=== PATIENT | female | born 1970 | race Caucasian/White ===

== ENCOUNTER → 2016-12-25 | Outpatient (CLI) | payer BC ==
[2016-12-25 09:46] LABS: BASO % 0.7 %; BASO ABS # 0.05 K/uL (0-0.2); COMPLETE YES; EOS % 3.8 %; IG% 0.3 %; LYMPH % 35.7 %; LYMPH ABS # 2.46 K/uL (1.2-3.4); MEAN CELL VOLUME 87.6 fL (80-100); MEAN CORPUSCULAR HEMOGLOBIN 29.4 pg (25-34); MEAN CORPUSCULAR HGB CONC 33.6 g/dl (32-36); MEAN PLATELET VOLUME 9.4 fL (7.4-10.4); MONO % 5.2 %; NEUT % 54.3 %; PLATELET COUNT 263 K/uL (130-400); RED BLOOD COUNT 4.45 M/uL (4.2-5.4)
[2016-12-25 10:53] LABS: ALT/SGPT 23 U/L (12-78); BLOOD UREA NITROGEN 18 mg/dl (7-18); CALCIUM 8.9 mg/dl (8.5-10.1); CARBON DIOXIDE 23 mmol/L (21-32); CHLORIDE 106 mmol/L (98-107); CHOLESTEROL 184 mg/dl (0-200); CREATININE 0.77 mg/dl (0.60-1.20); GLUCOSE 88 mg/dl (70-99); POTASSIUM 4.1 mmol/L (3.5-5.1); SODIUM 140 mmol/L (136-145)
[2016-12-25 10:56] LABS: ALB/GLOB RATIO 1.2 (0.9-2); ALKALINE PHOSPHATASE 59 U/L (45-117); AST/SGOT 14 U/L (15-37); CHOLESTEROL/HDL RATIO 3.3; HDL CHOLESTEROL 56 mg/dl; TRIGLYCERIDES 128 mg/dl (0-150); VERY LOW DENSITY LIPOPROT CALC 26 mg/dl
[2016-12-27 02:13] LABS: MUMPS IgG VALUE >5.00
== END | disposition home or self-care (01) ==
LOC: C.LAB 08:22
PROVIDERS: ATTEND Nurse Practitioner Family
DX: Z13.1 Encounter for screening for diabetes mellitus (principal); Z13.220 Encounter for screening for lipoid disorders; Z78.9 Other specified health status

== ENCOUNTER → 2017-10-31 | Outpatient (CLI) | payer BC ==
--- NOTE | 2017-10-31 10:47 | DIAGNOSTIC IMAGING REPORT ---
L FOOT MIN 3 VIEWS ROUTINE HISTORY: 46 years-old Female M79.672 Left foot [id number] acute left foot pain, most pronounced within the heel COMPARISON: None available TECHNIQUE: 3 views of the left foot FINDINGS: Mild first MTP joint degenerative changes. No acute fracture or dislocation. No stress fracture. Lateral plate and screw fusion hardware of the distal fibula. Post surgical changes of the medial malleolus are also noted. There is no significant spurring of the calcaneus. Mild spurring of the dorsal midfoot. No opaque foreign body. Soft tissues are unremarkable. IMPRESSION: Mild degenerative changes without acute fracture or dislocation. The above report was generated using voice recognition software. It may contain grammatical, syntax or spelling errors. Electronically signed by: Kendell Pierre M.D. 10/31/2017 10:46 AM Dictated Date/Time: 10/31/2017 10:17 AM
== END | disposition home or self-care (01) ==
LOC: C.RAD 09:57
PROVIDERS: ATTEND Nurse Practitioner Family
DX: M79.672 Pain in left foot (principal)

== ENCOUNTER → 2017-11-06 | Outpatient (CLI) | payer BC ==
--- NOTE | 2017-11-07 13:36 | MAMMOGRAPHY REPORT ---
BILATERAL DIGITAL SCREENING MAMMOGRAM TOMOSYNTHESIS WITH CAD: 11/06/2017 CLINICAL HISTORY: Routine screening. Patient has no complaints. TECHNIQUE: Breast tomosynthesis in addition to standard 2D mammography was performed. Current study was also evaluated with a Computer Aided Detection (CAD) system. COMPARISON: Comparison is made to exams dated: 09/18/2016 mammogram - [facility], 11/04/2014 mammogram, 10/12/2013 mammogram, 09/30/2012 mammogram, and 07/11/2011 mammogram. BREAST COMPOSITION: The tissue of both breasts is heterogeneously dense, which may obscure small mas ses. FINDINGS: There are faint calcifications within the left upper outer quadrant, for which spot magnif ication views are recommended for further evaluation. Additionally, there is a round circumscribed 5 mm mass seen within the left lateral breast at approximately 3:00, best seen on the tomosynthesis im ages, for which ultrasound is recommended for further evaluation; this may represent a cyst. The remainder of both breasts are stable compared to prior exams, without suspicious masses, calcific ations, or areas of architectural distortion noted. Calcifications seen within the right superior br east middle depth on the MLO view are stable compared to prior exams; calcifications demonstrated lay ering on the prior MLO view from the 2016 exam and are consistent with benign milk of calcium. IMPRESSION: ACR BI-RADS CATEGORY 0: INCOMPLETE EVALUATION: NEED ADDITIONAL IMAGING EVALUATION Left upper outer quadrant calcifications and left breast mass, for which additional imaging evaluatio n is recommended. The patient will be called to schedule an appointment. Approximately 10% of breast cancers are not detected with mammography. A negative mammographic report should not delay biopsy if a clinically suggestive mass is present. Nimisha Mcpherson M.D. /:11/06/2017 16:51:33 Wire Mill Rover: Ann-Marie ROWAN)(Chang), [facility] letter sent: Addl Imaging 0 BI-RADS Code: ACR BI-RADS Category 0: Incomplete Evaluation: Need Additional Imaging Evaluation
== END | disposition home or self-care (01) ==
LOC: C.MAMM 10:04
PROVIDERS: ATTEND Nurse Practitioner Family
DX: Z12.31 Encounter for screening mammogram for malignant neoplasm of breast (principal); R92.1 Mammographic calcification found on diagnostic imaging of breast; N63.20 Unspecified lump in the left breast, unspecified quadrant

== ENCOUNTER → 2017-11-19 | Outpatient (CLI) | payer BC ==
--- NOTE | 2017-11-19 14:12 | MAMMOGRAPHY REPORT ---
UNILATERAL LEFT DIGITAL DIAGNOSTIC MAMMOGRAM AND TARGETED LEFT ULTRASOUND: 11/19/2017 CLINICAL HISTORY: Callback from screening mammogram for left breast calcifications and left breast ma ss. TECHNIQUE: Spot magnification left CC and ML views were obtained. COMPARISON: Comparison is made to exams dated: 11/06/2017 mammogram, 09/18/2016 mammogram - [facility], 11/04/2014 mammogram, 10/12/2013 mammogram, 09/30/2012 mammogram, and 07/11/2011 m ammogram. BREAST COMPOSITION: The tissue of the left breast is heterogeneously dense, which may obscure small masses. FINDINGS: Spot magnification views of the left breast demonstrate 2 similar-appearing loose grouping s of calcifications in the left upper outer quadrant, best seen on the lateral views. The calcificat ions are predominantly amorphous and do not clearly demonstrate layering on the lateral view to sugge st milk of calcium. The total extent of the calcifications measures approximately 4.3 x 2.3 cm on th e lateral view. When compared to prior exams, the calcifications are not clearly stable. Therefore, they are indeterminate and stereotactic biopsy is recommended for further evaluation. The round 6 m m mass in the left 3:00 breast is seen on the spot magnification CC view and demonstrates partially c ircumscribed and partially obscured margins. Targeted ultrasound was performed of the left 3:00 breast in the region of the mammographic mass. In the left breast at approximately 2:30 to 3:00, 5 cm from the nipple, there is an oval parallel circu mscribed hypoechoic 9 x 5 x 9 mm mass. This corresponds with the mammographic mass and is indetermin ant for a solid mass versus complicated cyst. Recommend ultrasound-guided core needle biopsy for fur ther evaluation. IMPRESSION: ACR BI-RADS CATEGORY 4: SUSPICIOUS, TARGETED ULTRASOUND ACR BI-RADS CATEGORY 4: SUSPICIO US 1. Two similar-appearing groupings of amorphous calcifications in the left upper outer quadrant. The calcifications are indeterminate and stereotactic biopsy of one of the groups is recommended for fur ther evaluation. 2. Hypoechoic circumscribed 9 mm mass in the left 2:30 to 3:00 on ultrasound, which corresponds with a mammographic mass. The mass is indeterminant and ultrasound guided core needle biopsy is recommen ded for further evaluation. A phone call was made to the physician's office to confirm faxed results were received. The patient has been verbally notified of the results. She tentatively scheduled the biopsies before leaving the department. Approximately 10% of breast cancers are not detected with mammography. A negative mammographic report should not delay biopsy if a clinically suggestive mass is present. Nimisha Mcpherson M.D. ah/:11/19/2017 13:07:18 Assembly Mechanic: Maryam BURROWS(Irina)(Chang), [facility] letter sent: Abnormal 4/5 BI-RADS Code: ACR BI-RADS Category 4: Suspicious Ultrasound BI-RADS: ACR BI-RADS Category 4: Suspici ous
== END | disposition home or self-care (01) ==
LOC: C.MAMM 12:28
PROVIDERS: ATTEND Nurse Practitioner Family
DX: R92.1 Mammographic calcification found on diagnostic imaging of breast (principal); N63.20 Unspecified lump in the left breast, unspecified quadrant

== ENCOUNTER → 2017-12-02 | Outpatient (CLI) | payer OTHER ==
--- NOTE | 2017-12-02 09:34 | Discharge Instructions ---
Discharge Instructions Procedure Procedure Date: Dec 02, 2017. Reason for visit: L Calcs; Us Bx L Mass. Discharge Discharge Date: Dec 02, 2017. Discharge Diagnosis: post left breast stereotactic guided biopsy and ultrasound guided core biopsy Instructions Activity Recommendations: Additional Limitations (see below) Return to School/Work: no limitations Recommended Home Diet: No Limitations Provider Instructions: ACTIVITY RECOMMENDATIONS: * No lifting, pushing, pulling or exercising the affected side for three days. RETURN TO SCHOOL/WORK: * You may return to work/school after the procedure, but do not perform any strenuous activities for 24 to 48 hours. MEDICATIONS: * Tylenol (two 325 mg) every four to six hours if needed for mild pain (if not allergic to Tylenol). DIET: * Resume previous diet. SPECIAL CARE INSTRUCTIONS: * Keep biopsy site dry for 24 hours. May shower after 24 hours, but do not soak (bathe) incision. * May remove Tegaderm (plastic patch) tomorrow AFTER showering. * Leave the steri-strips on for one week. Allow the steri-strips to fall off by themselves. If not off after one week, you may remove them. You may place a Bandaid crosswise over the strips, if desired. * Apply ice 10 minutes on and 10 minutes off as needed. * Wear a bra at bedtime to sleep more comfortably for 2-3 days. * Your referring physician should have the results after approximately 5 to 7 business days. * Call for unusual bleeding, fever, drainage, etc or if you have any questions call [phone] during normal business hours or after hours call Dr Zamora, . FOLLOW UP VISIT: Follow-up with Referring Physician as scheduled. Willian Castro Recommendations: Call your doctor if: * Temperature above 101 degrees * Pain not relieved by pain medicine ordered * There is increased drainage or redness from any incision * You have any unanswered questions or concerns. Your Doctors Instructions noted above were prepared by provider Socorro Zamora. Patient Signature Section: Patient Instructions Signature Page Mara Gayle Patient (or Guardian) Signature/Date: I have read and understand the instructions given to me by my caregivers. Caregiver/RN/Doctor Signature/Date: The above-named patient and/or guardian has received patient instructions on this date. + Original Patient Signature Page (only) stays with chart. Please make copy for patient.
--- NOTE | 2017-12-02 13:37 | MAMMOGRAPHY REPORT ---
UNILATERAL LEFT DIGITAL DIAGNOSTIC MAMMOGRAM TOMOSYNTHESIS: 12/02/2017 CLINICAL HISTORY: Status post stereotactic guided biopsy of clustered amorphous microcalcifications i n the left upper outer quadrant posteriorly, and ultrasound guided core biopsy of an indeterminate hy poechoic 9 mm mass in the 2:30 left breast. Please refer to the reports from left breast ultrasound guided core biopsy and stereotactic biopsy pe rformed at the same time for full detail. IMPRESSION: POST PROCEDURE IMAGING FOR MARKER PLACEMENT Please refer to the reports from left breast ultrasound guided core biopsy and stereotactic biopsy pe rformed at the same time for full detail. Approximately 10% of breast cancers are not detected with mammography. A negative mammographic report should not delay biopsy if a clinically suggestive mass is present. Socorro Zamora M.D. ay/:12/02/2017 09:11:42 Senior Systems Administrator: Ann-Marie BURROWS(Irina)(Chang), [facility] BI-RADS Code: Post Procedure Imaging For Marker Placement
--- NOTE | 2017-12-02 13:37 | MAMMOGRAPHY REPORT ---
THIS REPORT HAS BEEN AMENDED. STEREOTACTIC GUIDED BIOPSY LEFT BREAST: 12/02/2017 CLINICAL HISTORY: 2 clusters of morphologically similar amorphous microcalcifications in the left upp er outer quadrant. Patient presents for stereotactic guided biopsy of one of the clusters. Ultrasound guided core biopsy was also performed in the left 2:30 breast during the same appointment for an indeterminate 9 mm hypoechoic solid appearing mass. Please refer to a separate report for ful l detail. COMPARISON: Comparison is made to exams dated: 11/19/2017 ultrasound, 11/19/2017 mammogram, 7 mammogram, 09/18/2016 mammogram - [facility], 11/04/2014 mammogram, and 10/12/2013 mammogram. PATIENT CONSENT: After explaining the risks, benefits and alternatives of the procedure to the patien t, informed consent was obtained both verbally and in writing. Specific risks include: Bleeding, inf ection, puncture of adjacent structure, pain, nontarget biopsy, sampling error, metal allergy and med ication reaction. PROCEDURE DESCRIPTION: A time-out was performed and the left breast was confirmed as the site of biop sy. The patient was placed prone on the stereotactic biopsy table and the breast was placed in latera lmedial compression. A banquet line cook image was obtained that demonstrated the clustered microcalcifications in question (targeting was performed of the slightly larger cluster more posteriorly in the left uppe r outer quadrant). They are amenable to sterotactic biopsy. Then +15 and -15 stereo pair images we re obtained. The calcifications were targeted utilizing the coordinates obtained by the computer. Th e skin was prepped with Betadine. 1% Lidocaine with and without epinipherine was administered as loca l anesthesia. A small skin incision was made. Through the incision, the needle was inserted to the d epth determined by the computer. 9 samples were obtained using a Lumetricsiva 9-gauge vacuum-assisted biopsy device. The specimen radiograph demonstrated several petroleum products sales representative microcalcifications, there fore, a dumbbell shaped metallic marker was placed at the biopsy site. There was no immediate complic ation. Hemostasis was achieved after several minutes of manual compression. The samples were sent to pathology in two appropriately labeled containers, "with calcifications" and "without calcifications ". All of the samples were obtained from the same single biopsy site. Postprocedure CC and ML views of the left breast were obtained. A new dumbbell-shaped biopsy marker clip is seen in the left upper outer posterior breast at the site of the biopsied clustered amorphou s microcalcifications. A ribbon shaped clip is also seen in the 2:30 middle to posterior left breast at the site of the biopsied 9 mm hypoechoic mass identified on ultrasound. No significant post biop sy hematoma. IMPRESSION: STEREOTACTIC GUIDED BIOPSY 1. Status post stereotactic guided biopsy of clustered amorphous microcalcifications in the upper ou ter posterior left breast. 2. Ultrasound-guided core biopsy of a 9 mm hypoechoic mass was also performed in the 2:30 left breas t during the same appointment. Please refer to a separate report for full detail. 3. Pending benign pathology results, follow-up left diagnostic mammograms and repeat spot magnificat ion views are recommended to ensure stability of the other similar appearing non-biopsied cluster of calcifications also in the left upper outer quadrant. The patient will receive notification of the biopsy results from her referring physician. Socorro Zamora M.D. ay/:12/02/2017 09:59:01 Attending Technologist: Ann-Marie Chun RT(R)(M), [facility] Order Entry: Joan BURROWS(R)(M), [facility] AMENDMENT: 12/04/2017 Socorro Zamora M.D. Pathology results from the stereotactic guided biopsy of clustered microcalcifications in the left up per outer quadrant yielded atypical ductal hyperplasia. Microcalcifications present. The pathology results from ultrasound-guided core biopsy of a solid hypoechoic mass in the 2:30 left breast yielded a fibroadenoma. Pathology results from both biopsies are concordant with the imaging appearance. Surgical consultati on for surgical excision of the area of atypia is recommended (due noted by dumbbell-shaped biopsy ma rker clip), given the finding of atypia. However, there is a second similar appearing cluster of filemon rocalcifications also in the left upper outer middle one third of the breast for which stereotactic g uided biopsy is recommended prior to surgical consultation. The fibroadenoma is benign and does not need surgical excision.
--- NOTE | 2017-12-02 13:37 | MAMMOGRAPHY REPORT ---
ULTRASOUND GUIDED BIOPSY LEFT BREAST: 12/02/2017 CLINICAL HISTORY: 1. Status post ultrasound-guided core biopsy of an indeterminate 9 mm solid mass i n the 2:30 left breast. 2. Stereotactic guided biopsy was also performed of clustered amorphous microcalcifications in the u pper outer posterior left breast during the same appointment. Please refer to a separate report for full detail. COMPARISON: Comparison is made to exams dated: 12/02/2017 stereotactic biopsy, 11/19/2017 ultrasound, 11/19/2017 mammogram, 11/06/2017 mammogram, 09/18/2016 mammogram - [facility], and 1 01/05/2014 mammogram. PATIENT CONSENT: The procedure, risks and benefits were discussed with the patient and informed conse nt was obtained both verbally and in writing. Specific risks to this procedure include: bleeding, in fection, puncture of adjacent structure, nontarget biopsy, sampling error, pain, metal allergy and me dication reaction. PROCEDURE DESCRIPTION: A time out was performed and the left breast was agreed as the site of biopsy. The skin was prepped and draped in the usual sterile fashion. The solid 9 mm mass in the 2:30 left b reast was chosen as the target for biopsy. Subcutaneous and intraparenchymal 1% buffered lidocaine, w ith and without epinephrine, was administered as local anesthesia. A skin incision was made. Through the incision, 4 samples were taken with a 14 gauge Achieve biopsy device. A ribbon shaped metallic m arker was placed at the biopsy site. Hemostasis was achieved after manual compression. The patient to lerated the procedure well and there was no immediate complication. The samples were sent to the [facility] hology department in an appropriately labeled container. Post procedure left CC and MLO 2-D and tomosynthesis images were obtained. A new ribbon-shaped biops y marker clip is identified in the 2:30 to 3:00 left breast, at the site of the biopsied hypoechoic 9 mm mass identified on ultrasound. A dumbbell shaped biopsy marker clip is seen in the upper outer p osterior left breast, slightly superior to the ribbon-shaped clip, denoting the site of stereotactic guided biopsy. No significant postbiopsy hematoma is identified. IMPRESSION: ULTRASOUND GUIDED BIOPSY 1. Status post ultrasound guided core biopsy of an indeterminate 9 mm hypoechoic mass in the 2:30 le ft breast, with ribbon-shaped biopsy marker clip placed at the site. 2. Stereotactic guided biopsy was also performed in the left upper outer quadrant of clustered amorp hous macrocalcifications. Please refer to a separate report for full detail. The patient will receive notification of the biopsy results from her referring physician. Socorro Zamora M.D. ay/:12/02/2017 09:56:12 Suture Gauger: Ann-Marie THOMAS (R)), [facility]
== END | disposition home or self-care (01) ==
LOC: C.MAMM 08:26
PROVIDERS: ATTEND Nurse Practitioner Family
DX: R92.0 Mammographic microcalcification found on diagnostic imaging of breast (principal); N63.20 Unspecified lump in the left breast, unspecified quadrant; N60.92 Unspecified benign mammary dysplasia of left breast; D24.2 Benign neoplasm of left breast

== ENCOUNTER → 2018-03-19 | Outpatient (CLI) | payer OTHER ==
[2018-03-19 09:54] LABS: ALBUMIN 3.9 gm/dl (3.4-5.0); ALT/SGPT 22 U/L (12-78); AST/SGOT 14 U/L (15-37); BLOOD UREA NITROGEN 10 mg/dl (7-18); CALCIUM 9.1 mg/dl (8.5-10.1); CARBON DIOXIDE 26 mmol/L (21-32); CHOLESTEROL 149 mg/dl (0-200); GLUCOSE 88 mg/dl (70-99); POTASSIUM 3.9 mmol/L (3.5-5.1); SODIUM 139 mmol/L (136-145)
[2018-03-19 09:56] LABS: ALKALINE PHOSPHATASE 59 U/L (45-117); LDL CHOLESTEROL CALCULATED 80 mg/dl
== END | disposition home or self-care (01) ==
LOC: C.LAB 08:22
PROVIDERS: ATTEND Nurse Practitioner Family
DX: Z13.1 Encounter for screening for diabetes mellitus (principal)